=== PATIENT | male | born 1970 ===

== ENCOUNTER 2021-06-03 07:48 | Emergency (ER) | payer MEDICAID ==
[2021-06-03] MEDS ORDERED: CEFEPIME/NS 2 GM/100 ML 2 GM/100 ML BAG IV ONE ×2 (08:01→09:00)
[2021-06-03] MEDS ORDERED: SODIUM CHLORIDE 0.9% 1000 ML 1,000 ML IV ONE ×2 (08:02→12:32)
[2021-06-03] MEDS ORDERED: DEXTROSE 50% IN WATER (25GM) 50 ML VIAL IV ONE ×3 (08:02→13:26)
[2021-06-03] MEDS ORDERED: DEXTROSE 50% IN WATER (25GM) 50 ML SYRINGE IV ONE ×6 (08:03→14:00)
--- NOTE | 2021-06-03 08:13 | Emergency Department Report ---
ED General Adult HPI - General Stated complaint: HIGH BLOOD SUGAR PUI?: Yes Time Seen by Provider: 06/03/21 07:56 Source: patient, old records reviewed Mode of arrival: Stretcher Limitations: No Limitations - History of Present Illness Initial comments: CC: "Will you take my catheter out?" HPI: This is a 51 yo male with hx of CVA Left-side hemiparesis, kidney stone, thoracic aortic aneurysm, hyperlipidemia, HTN, seizure, cataract, indwelling paige catheter who presents with low blood sugar and hypotension. Blood sugar 38 at [facility]. Patient given oral glucose.. SBAR form from [facility] documented BP 101/72. However, patient severely hypotensive upon arrival. Patient has pain near paige catheter. He states that the paige catheter has been present "for a while". He denies cough, shortness of breath, abdominal pain Patient is full code. I reviewed [facility] ICU consultation note provided with [facility] documentation. In June 2020, patient was taken to the operating room for right obstructing ureteral stone. At that time patient was febrile and hypotensive. No documented history of diabetes mellitus. I obtained further history from Raymond Rm, his brother. He is the clinical decision maker. Patient has been a resident of [facility] for 3 years since his major stroke. Patient has not been admitted to the hospital since June 2020 at [facility]. Patient was infected with COVID-19 last year. He received COVID-19 vaccine according to brother's report. -: This morning Consistency: constant Improves with: none Worsens with: none Associated Symptoms: other (Pain at Paige catheter site) - Related Data Allergies Allergy/AdvReac Type Severity Reaction Status Date / Time No Known Allergies Allergy Unverified 06/03/21 08:22 ED Review of Systems ROS: Stated complaint: HIGH BLOOD SUGAR Other details as noted in HPI Comment: All other systems reviewed and negative Constitutional: malaise Respiratory: denies: cough, shortness of breath Cardiovascular: denies: chest pain Gastrointestinal: denies: abdominal pain, nausea, vomiting Musculoskeletal: denies: back pain ED Past Medical Hx - Past Medical History Previous Medical History?: Yes Hx CVA: Yes Hx Seizures: Yes Hx Kidney Stones: Yes - Surgical History Past Surgical History?: Yes Additional Surgical History: Craniotomy, cystoscopy, ureteral stent - Family History Family history: hypertension - Social History Smoking Status: Never Smoker Substance Use Type: None ED Physical Exam - General General appearance: alert, anxious, other (Patient appears ill, hyperventilating, clammy, patient repeatedly reaches toward his groin) - Head Head exam: Present: atraumatic, normocephalic - Eye Eye exam: Present: normal appearance. Absent: scleral icterus, conjunctival injection - ENT ENT exam: Present: mucous membranes dry, other (No oropharyngeal lesions) - Neck Neck exam: Present: normal inspection, full ROM - Respiratory Respiratory exam: Present: respiratory distress, decreased breath sounds, other (Hyperventilation rapid breathing). Absent: accessory muscle use, prolonged expiratory - Cardiovascular Cardiovascular Exam: Present: normal rhythm, tachycardia, normal heart sounds. Absent: systolic murmur, diastolic murmur, rubs, gallop - GI/Abdominal GI/Abdominal exam: Present: soft, normal bowel sounds. Absent: distended, tenderness, guarding, rebound - exam: Present: testicular tenderness, scrotal swelling, other (Purulent discharge at urethra, Paige catheter covered in residue, Erythematous edematous scrotum exquisitely tender to touch, Scrotal skin: Erythematous shiny skin without typical scrotal folds) - Extremities Exam Extremities exam: Present: other (No pedal edema, left hand flexed contracted at the wrist minimal movement of left upper and left lower extremity) - Neurological Exam Neurological exam: Present: alert, altered, other (Oriented to name. Unclear situation. Unclear of date. Patient knows that he is in hospital. He name the hospital "[facility]") - Psychiatric Psychiatric exam: Present: anxious - Skin Skin exam: Present: warm, dry, intact, pallor ED Course Vital Signs 06/03/21 06/03/21 06/03/21 08:15 08:30 08:45 Pulse Rate 117 H 117 H 115 H Respiratory 52 H 27 H 46 H Rate Blood Pressure 65/32 65/32 67/37 O2 Sat by Pulse 56 L 72 L Oximetry 06/03/21 06/03/21 06/03/21 09:00 09:20 09:30 Pulse Rate 117 H 130 H Respiratory 49 H 46 H Rate Blood Pressure 67/37 65/32 82/48 O2 Sat by Pulse 100 81 L Oximetry 06/03/21 06/03/21 06/03/21 09:46 10:00 10:16 Pulse Rate 115 H Respiratory 14 Rate Blood Pressure 82/48 73/30 73/30 O2 Sat by Pulse 97 100 99 Oximetry 06/03/21 06/03/21 06/03/21 11:01 11:16 11:30 Pulse Rate 124 H 123 H 132 H Respiratory 45 H 47 H 34 H Rate Blood Pressure 81/42 83/50 O2 Sat by Pulse 99 98 97 Oximetry 06/03/21 06/03/21 11:54 12:00 Pulse Rate 132 H 124 H Respiratory 31 H 27 H Rate Blood Pressure 92/50 92/50 O2 Sat by Pulse 100 98 Oximetry - Reevaluation(s) Reevaluation #1: 06/03/21 09:24 Patient is tachycardic tachypneic heart rate 130 bpm irregular rhythm seen on monitor. EKG ordered. Blood pressure improved systolic 83/52 after 1.5 L of normal saline. Reevaluation #2: 06/03/21 10:20 Gross hematuria seen in collection bag after Paige catheter was exchanged by nurse. Reevaluation #3: 06/03/21 10:20 Patient has persistent hypotension 72/38. Patient received 30 mils per kilogram of normal saline. CVL will be inserted. Reevaluation #4: 06/03/21 11:20 Patient appears delirious. He repeatedly asked to have wrist restraint moved. He called me "Ms. Vega." Reevaluation #5: 06/03/21 12:13 I spoke with radiologist. He called with critical findings of subcutaneous air at the base of the penis and scrotum. He suspects the cause as traumatic Paige placement - Consultations Consultation #1: 06/03/21 12:40 I spoke with [facility] transfer line specialist in order to expedite transfer to facility with urology and critical care. Consultation #2: 06/03/21 12:43 Repeat blood pressure 123/55 map of 78 Consultation #3: 06/03/21 12:[address] Curiel critical care physician at [facility] staff to the patient in transfer. He requested that I speak with the consulting urologist. 06/03/21 13:00 06/03/21 13:06 I spoke with urologist Dr. Serrano who also accepted the patient in transfer. Patient will be transferred to the ICU at [facility]. - Central Line Placement Right Femoral Consent Obtained: emergent situation Time Out Performed: Yes Patient Placed on Monitor/Pulse Ox: Yes MD Prep: mask, gown, gloves, other (drape cap) Central Line Prep: Povidone-Iodine 1% Local Anesthesia Used: Lidocaine 1% Amount of Anesthesia Used (mls): 5 Ultrasound Used for Placement: Yes Central Line Lumen Inserted: triple Reason for Insertion: Volume Resuscitation Bloods Obtained for Lab: Yes Central Line Position: sutured in place with nyl, other (biopatch) Dressing Applied: Tegaderm Patient Tolerated Procedure: well ED Medical Decision Making - Lab Data Result diagrams: 06/03/21 08:38 06/03/21 08:51 Laboratory Results - last 24 hr 06/03/21 06/03/21 06/03/21 08:01 08:38 08:38 WBC 21.4 H RBC 4.29 Hgb 11.7 L Hct 37.4 MCV 87 MCH 27 L MCHC 31 L RDW 17.1 H Plt Count 75 L Seg Neutrophils % P[employer] PT INR APTT D-Dimer Sodium 141 Potassium 3.5 L Chloride 99.0 Carbon Dioxide 18 L Anion Gap 28 BUN 43 H Creatinine 5.4 H Estimated GFR 11 BUN/Creatinine Ratio 8 Glucose 40 L POC Glucose 36 L Lactic Acid Calcium 9.3 Ferritin Total Bilirubin 0.70 AST 41 H ALT 17 Alkaline Phosphatase 66 Lactate Dehydrogenase C-Reactive Protein Total Protein 6.3 Albumin 3.2 L Albumin/Globulin Ratio 1.0 Urine Color Urine Turbidity Urine pH Ur Specific [place] Urine Protein Urine Glucose (UA) Urine Ketones Urine Blood Urine Nitrite Urine Bilirubin Urine Urobilinogen Ur Leukocyte Esterase Urine WBC (Auto) Urine RBC (Auto) 06/03/21 06/03/21 06/03/21 08:38 08:51 08:51 WBC RBC Hgb Hct MCV MCH MCHC RDW Plt Count Seg Neutrophils % PT INR APTT D-Dimer > 15905 H Sodium Potassium Chloride Carbon Dioxide Anion Gap BUN Creatinine Estimated GFR BUN/Creatinine Ratio Glucose 44 L POC Glucose Lactic Acid 12.00 H* Calcium Ferritin Total Bilirubin AST ALT Alkaline Phosphatase Lactate Dehydrogenase 306 H C-Reactive Protein 22.70 H Total Protein Albumin Albumin/Globulin Ratio Urine Color Urine Turbidity Urine pH Ur Specific [place] Urine Protein Urine Glucose (UA) Urine Ketones Urine Blood Urine Nitrite Urine Bilirubin Urine Urobilinogen Ur Leukocyte Esterase Urine WBC (Auto) Urine RBC (Auto) 06/03/21 06/03/21 06/03/21 08:51 08:51 09:34 WBC RBC Hgb Hct MCV MCH MCHC RDW Plt Count Seg Neutrophils % PT 23.5 H INR 2.05 H APTT 53.6 H D-Dimer Sodium Potassium Chloride Carbon Dioxide Anion Gap BUN Creatinine Estimated GFR BUN/Creatinine Ratio Glucose POC Glucose 26 L Lactic Acid Calcium Ferritin 647.4 H Total Bilirubin AST ALT Alkaline Phosphatase Lactate Dehydrogenase C-Reactive Protein Total Protein Albumin Albumin/Globulin Ratio Urine Color Urine Turbidity Urine pH Ur Specific [place] Urine Protein Urine Glucose (UA) Urine Ketones Urine Blood Urine Nitrite Urine Bilirubin Urine Urobilinogen Ur Leukocyte Esterase Urine WBC (Auto) Urine RBC (Auto) 06/03/21 10:09 WBC RBC Hgb Hct MCV MCH MCHC RDW Plt Count Seg Neutrophils % PT INR APTT D-Dimer Sodium Potassium Chloride Carbon Dioxide Anion Gap BUN Creatinine Estimated GFR BUN/Creatinine Ratio Glucose POC Glucose Lactic Acid Calcium Ferritin Total Bilirubin AST ALT Alkaline Phosphatase Lactate Dehydrogenase C-Reactive Protein Total Protein Albumin Albumin/Globulin Ratio Urine Color Red Urine Turbidity Cloudy Urine pH 8.0 H Ur Specific [place] 1.020 Urine Protein 100 mg/dl Urine Glucose (UA) 50 Urine Ketones Neg Urine Blood Lg Urine Nitrite Neg Urine Bilirubin Neg Urine Urobilinogen < 2.0 Ur Leukocyte Esterase Neg Urine WBC (Auto) > 182.0 H Urine RBC (Auto) > 182.0 - EKG Data EKG shows normal: sinus rhythm, axis Rate: tachycardia - EKG Data Interpretation: nonspecific ST-T wave ash[place] 06/03/21 09:45 Sinus tachycardia rate 125 bpm left axis deviation normal QTC nonspecific T wave pattern no ST elevation - Radiology Data Radiology results: report reviewed [facility] [address] [place] [address] XRay Report Signed Patient: OVI RM MR#: [id number] : 1970 Acct:[id number] Age/Sex: 51 / M ADM Date: 06/03/21 Loc: ED Attending Dr: Ordering Physician: Sidra Reddy MD Date of Service: 06/03/21 Procedure(s): XR chest 1V ap Accession Number(s): [id number] cc: Sidra Reddy MD Fluoro Time In Minutes: CHEST 1 VIEW 06/03/2021 8:33 AM INDICATION / CLINICAL INFORMATION: sepsis hypotension. COMPARISON: None available. FINDINGS: SUPPORT DEVICES: None. HEART / MEDIASTINUM: No significant abnormality. LUNGS / PLEURA: No significant pulmonary or pleural abnormality. No pneumothorax. ADDITIONAL FINDINGS: No significant additional findings. IMPRESSION: 1. No acute findings. Signer Name: Oswaldo Raza MD Signed: 06/03/2021 8:39 AM Workstation Name: [id number] Transcribed By: PERRI Dictated By: Oswaldo Raza MD Electronically Authenticated By: Oswaldo Raza MD Signed Date/Time: 06/03/21838 DD/ 8 TD/TT: Patient Name: OVI RM Gender: Male Date of : 1970 Referring Provider: SIDRA RUIZ Organization: [facility] Accession Number: [id number] Requested Date: June 03, 2021 11:02 Report Status: Final Requested Procedure: 1 Procedure Description: CT abdomen pelvis wo con Modality: CT Findings Reporting MD: Oswaldo Raza Dictation Time: June 03, 2021 11:09 Molder Foam Rubber: Not available Demolition Specialist Date: CT CHEST, ABDOMEN AND PELVIS WITHOUT CONTRAST HISTORY: Hematuria, septic shock COMPARISON: None TECHNIQUE: Routine chest, abdominal and pelvic CT exam performed without contrast. Lack of intravenous contrast limits evaluation of the vascular and solid organs.. All CT scans at this location are performed using CT dose reduction for ALARA by means of automated exposure control. FINDINGS: CT CHEST: Lungs: Mild bibasilar subsegmental atelectasis. Trachea and Bronchi: No significant abnormality. Heart and Pericardium: Mild global cardiomegaly. Mild coronary artery atherosclerotic calcification. Vasculature: No significant abnormality. Lymphatics: No lymphadenopathy. CT ABDOMEN: Liver: No significant abnormality. Biliary: No significant abnormality. Spleen: No significant abnormality. Unenlarged. Pancreas: No significant abnormality. Adrenals: No significant abnormality. Kidneys: There are some small nonobstructing right intrarenal stones measuring up to 5 mm. There is no hydronephrosis. Lymphatics: No lymphadenopathy. Vasculature: No significant abnormality. Bowel/Peritoneum: There is moderate small bowel distention with transition to nondistended bowel in the lower mid abdomen. There is an umbilical hernia containing a loop of small bowel but this is not the site of obstruction. There is no free air or pneumatosis. The colon appears decompressed. CT PELVIC: : There is a Paige catheter in the bladder. There is some subcutaneous air in the visualized portion of the base of the penis and scrotum. Lymphatics: No significant abnormality. Osseous Structures: No aggressive appearing osseous lesions. Additional Findings: Right femoral venous catheter noted. IMPRESSION: [facility] [address] [place] [address] P [phone] F [phone] [facility] - Report exported on Jun 03, 2021 11:39:84 [id number] - Page 2 of 2 1. Subcutaneous air in the base of the penis and visualized portion of the scrotum. This could be due to traumatic Paige catheter placement or Dinorah gangrene. 2. Mild small bowel obstruction with transition in the lower midabdomen. 3. Nonobstructing right intrarenal stones. 4. No acute findings in the chest. Signer Name: Oswaldo Raza MD Signed: 06/03/2021 11:09 AM Workstation Name: [id number] - Medical Decision Making 1. Septic shock: IV cefepime, 30 mL/kg NS bolus given immediately upon arrival. with persistent hypotension requiring CVL insertion and norepinephrine. Severe lactic acidosis 12, vancomycin added for additional broad-spectrum coverage, source presumed upon arrival CT abdomen pelvis: Reveals subcutaneous air in the scrotal wall and base of penis, on examination patient has erythematous, edematous, exquisitely tender scrotum 2. Persistent hypoglycemia, sepsis induced 3. Acute kidney injury, vasomotor nephropathy due to organ hypoperfusion/septic shock 4. Acute metabolic encephalopathy multifactorial delirium due to sepsis, persistent hypoglycemia 5. Sepsis-induced coagulopathy: patient is not on anticoagulation 6. Tachypnea with elevated D-dimer: I suspect tachypnea due to severe metabolic derangement. However bilateral lower extremity duplex ultrasound obtained to rule out VTE. No DVT detected. Elevated D-dimer reflective of sepsis induced coagulopathy and organ dysfunction 7. Small bowel obstruction: Patient does not have extended abdomen. He did not have any vomiting or reported abdominal pain. I do not suspect CT findings to be clinically significant Critical Care Time: Yes Critical care time in (mins) excluding proc time.: 150 Critical care attestation.: If time is entered above; I have spent that time in minutes in the direct care of this critically ill patient, excluding procedure time. 150 minutes of critical care time excluding procedures were used in the care of the patient. I came immediately to the bedside upon patient's arrival. I discussed treatment plan with the nursing team members. I reviewed electronic record. I was concerned for septic shock and imminent airway compromise. I reviewed SNF documentation. Patient required multiple interventions and reassessments. ED Disposition Clinical Impression: Dinorah gangrene, Septic shock, Partial small bowel obstruction, Acute hemorrhagic cystitis, Acute metabolic encephalopathy, Sepsis with multi-organ dysfunction Disposition: DC/TX-70 ANOTHER TYPE HLTHCARE Is pt being admited?: No Does the pt Need Aspirin: No Condition: Critical
--- NOTE | 2021-06-03 08:44 | XRay Report ---
CHEST 1 VIEW 06/03/2021 8:33 AM INDICATION / CLINICAL INFORMATION: sepsis hypotension. COMPARISON: None available. FINDINGS: SUPPORT DEVICES: None. HEART / MEDIASTINUM: No significant abnormality. LUNGS / PLEURA: No significant pulmonary or pleural abnormality. No pneumothorax. ADDITIONAL FINDINGS: No significant additional findings. IMPRESSION: 1. No acute findings. Signer Name: Oswaldo Raza MD Signed: 06/03/2021 8:39 AM Workstation Name: [id number]
[2021-06-03] MEDS ORDERED: SODIUM CHLORIDE 0.9% 1000 ML IV SOLN IV ONE (08:46)
[2021-06-03] MEDS ORDERED: ACETAMINOPHEN 650 MG RECT SUPP PR ONE ×2 (09:03)
[2021-06-03 09:24] LABS: C-Reactive Protein 22.7 mg/dL (0.00-1.30)
[2021-06-03 09:25] LABS: Albumin 3.2 g/dL (3.9-5); Calcium 9.3 mg/dL (8.4-10.2)
[2021-06-03 09:30] LABS: Hematocrit 37.4 % (35.5-45.6); Hemoglobin 11.7 gm/dl (11.8-15.2); Mean Corpuscular HGB Conc 31 % (32-34); Mean Corpuscular Volume 87 fl (84-94); Red Blood Count 4.29 M/mm3 (3.65-5.03); Red Cell Distribution Width 17.1 % (13.2-15.2)
[2021-06-03] MEDS: DEXTROSE 50% IN WATER (25GM) 50 ML SYRINGE IV ONE ×4 (09:48→12:14)
[2021-06-03 09:49] LABS: Platelet Count 75 K/mm3 (140-440)
[2021-06-03 10:48] LABS: INR 2.05 (0.87-1.13); Partial Thromboplastin Time 53.6 Sec. (24.2-36.6)
[2021-06-03] MEDS: NORepinephrine/NS 4 MG-250 ML 4 MG/250 ML BAG IV SCH ×3 (11:03→16:39)
[2021-06-03 11:05] LABS: Bilirubin,Urine NEG (Negative); Blood,Urine LG (Negative); Color,Urine Red (Yellow); Urobilinogen,Urine < 2.0 mg/dL (<2.0)
[2021-06-03 11:17] LABS: RBC,Urine > 182.0 /HPF (0.0-6.0)
[2021-06-03 11:18] LABS: WBC,Urine > 182.0 /HPF (0.0-6.0)
[2021-06-03] MEDS ORDERED: VANCOMYCIN 2,000 MG in SODIUM CHLORIDE 0.9% 500 ML 500 ML IV ONE (12:00)
[2021-06-03] MEDS ORDERED: VANCOMYCIN PHARMACY TO DOSE IV SCH (12:00)
[2021-06-03] MEDS ORDERED: DEXTROSE 10% IN WATER 1,000 ML IV SCH (12:00)
[2021-06-03 12:01] LABS: Total Cells Counted 100
[2021-06-03 12:02] LABS: Platelet Estimate Consistent w Auto; RBC Morphology Normal
--- NOTE | 2021-06-03 12:13 | Cat Scan Report ---
CT CHEST, ABDOMEN AND PELVIS WITHOUT CONTRAST HISTORY: Hematuria, septic shock COMPARISON: None TECHNIQUE: Routine chest, abdominal and pelvic CT exam performed without contrast. Lack of intraveno us contrast limits evaluation of the vascular and solid organs.. All CT scans at this location are pe rformed using CT dose reduction for ALARA by means of automated exposure control. FINDINGS: CT CHEST: Lungs: Mild bibasilar subsegmental atelectasis. Trachea and Bronchi: No significant abnormality. Heart and Pericardium: Mild global cardiomegaly. Mild coronary artery atherosclerotic calcification. Vasculature: No significant abnormality. Lymphatics: No lymphadenopathy. CT ABDOMEN: Liver: No significant abnormality. Biliary: No significant abnormality. Spleen: No significant abnormality. Unenlarged. Pancreas: No significant abnormality. Adrenals: No significant abnormality. Kidneys: There are some small nonobstructing right intrarenal stones measuring up to 5 mm. There is n o hydronephrosis. Lymphatics: No lymphadenopathy. Vasculature: No significant abnormality. Bowel/Peritoneum: There is moderate small bowel distention with transition to nondistended bowel in t he lower mid abdomen. There is an umbilical hernia containing a loop of small bowel but this is not t he site of obstruction. There is no free air or pneumatosis. The colon appears decompressed. CT PELVIC: : There is a Juarez catheter in the bladder. There is some subcutaneous air in the visualized portio n of the base of the penis and scrotum. Lymphatics: No significant abnormality. Osseous Structures: No aggressive appearing osseous lesions. Additional Findings: Right femoral venous catheter noted. IMPRESSION: 1. Subcutaneous air in the base of the penis and visualized portion of the scrotum. This could be due to traumatic Juarez catheter placement or Dinorah gangrene. 2. Mild small bowel obstruction with transition in the lower midabdomen. 3. Nonobstructing right intrarenal stones. 4. No acute findings in the chest. Signer Name: Oswaldo Raza MD Signed: 06/03/2021 12:09 PM Workstation Name: [id number]
--- NOTE | 2021-06-03 13:07 | Vascular Lab Report ---
DUPLEX DOPPLER LOWER EXTREMITY VEINS, BILATERAL INDICATION / CLINICAL INFORMATION: immobile patient elevated d-dimer. Lower extremity pain and swelling. TECHNIQUE: Duplex doppler imaging was performed through the veins of both lower extremities using venous jackie bonny and other maneuvers. COMPARISON: None available. FINDINGS: Right Common Femoral vein: Negative. Right Femoral vein: Negative. Right Popliteal vein: Negative. Right Calf veins: Negative. Left Common Femoral vein: Negative. Left Femoral vein: Negative. Left Popliteal vein: Negative. Left Calf veins: Negative. Additional findings: None. IMPRESSION: 1. No sonographic evidence for DVT in either lower extremity. Signer Name: Osman Mccurdy MD Signed: 06/03/2021 1:02 PM Workstation Name: [id number]
[2021-06-03] MEDS ORDERED: HYDROCORTISONE SOD SUCC 100 MG/2 ML VIAL IV ONE (13:26)
--- NOTE | 2021-06-03 14:28 | Cat Scan Report ---
CT pelvis wo con INDICATION / CLINICAL INFORMATION: Worsening scrotal and penile pain. TECHNIQUE: Routine CT pelvis without contrast All CT scans at this location are performed using CT dose reductio n for ALARA by means of automated exposure control. COMPARISON: Immediately prior exam performed earlier today FINDINGS: Pelvis: The Juarez catheter is unchanged in position from the immediately prior exam. The urinary blad debra remains collapsed. Within the mid left penile urethra there is again mixed fluid and gas seen within the surrounding pen ile soft tissues this is similar to the prior exam. No definite gas is identified within the scrotum or the upper peritoneal luna. Review of the more superior pelvis demonstrates multiple dilated loops of small bowel with partial raine wel herniation to the periumbilical hernia, unchanged from the prior exam. IMPRESSION: Ultimately no significant change from the immediately prior exam on 06/03/2021. Subcutaneous fluid and mixed gas is at the level of the mid penile urethra and the surrounding extraurethral penile soft ti ssues. Diagnostic considerations remain penile trauma versus underlying infection, as outlined previo usly. Signer Name: Osman Mccurdy MD Signed: 06/03/2021 2:24 PM Workstation Name: [id number]
[2021-06-03 15:57] VITALS: BP 98/62
--- NOTE | 2021-06-05 09:14 | Electrocardiograph Report ---
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
== END 2021-06-03 16:53 | disposition other institution (70) ==
LOC: ED 07:48
DX: A41.9 Sepsis, unspecified organism (principal); N49.3 Fournier gangrene; K56.600 Partial intestinal obstruction, unspecified as to cause; N30.01 Acute cystitis with hematuria; G93.41 Metabolic encephalopathy; I10 Essential (primary) hypertension; E78.5 Hyperlipidemia, unspecified; Z20.822 Contact with and (suspected) exposure to COVID-19; Z86.73 Personal history of transient ischemic attack (TIA), and cerebral infarction without residual deficits; Z98.890 Other specified postprocedural states
CPT/HCPCS: 36415; 36556; 71045; 71250; 72192; 74176; 80053; 81001; 82140; 82728; 82947; 82962; 83615; 84145; 85007; 85025; 85379; 85610; 85730; 86140; 87040; 87076; 87086; 87186; 93005; 93970; 96361; 96365; 96366; 96368; 96375; 96376; 99291; 99292; J0692; J1720; J3370; J7030; J7040; U0003

== ENCOUNTER 2022-01-15 19:45 | Inpatient (IN) | payer MEDICAID ==
--- NOTE | 2022-01-15 20:46 | Emergency Department Report ---
HPI - General Chief Complaint: Urogenital-Male Time Seen by Provider: 01/15/22 20:23 - HPI HPI: 51-year-old male, with a history of CVA, seizures, craniotomy and suprapubic Paige catheter, presents to the emergency department with a 1 to 2-day history of a clogged Paige catheter. It is causing some lower abdominal/suprapubic discomfort. Patient presents to the ED via EMS from home. He denies any fever, shortness of breath. ED Past Medical Hx - Past Medical History Previous Medical History?: Yes Hx CVA: Yes Hx Seizures: Yes Hx Kidney Stones: Yes - Surgical History Past Surgical History?: Yes Additional Surgical History: Craniotomy, cystoscopy, ureteral stent - Social History Smoking Status: Never Smoker Substance Use Type: None ED Review of Systems ROS: Stated complaint: CLOGGED CATHER Other details as noted in HPI Comment: All other systems reviewed and negative Respiratory: denies: shortness of breath Cardiovascular: denies: chest pain, edema Gastrointestinal: abdominal pain Genitourinary: other (clogged paige catheter). denies: hematuria Physical Exam - Physical Exam Vital Signs: Vital Signs 01/15/22 20:05 Temperature 98.2 F Pulse Rate 120 H Respiratory 18 Rate Blood Pressure 144/95 [Right] O2 Sat by Pulse 96 Oximetry Physical Exam: GENERAL: The patient is well-developed well-nourished. HENT: Normocephalic. Atraumatic. Patient has moist mucous membranes. EYES: Extraocular motions are intact. NECK: Supple. Trachea is midline. CHEST/LUNGS: Clear to auscultation. There is no respiratory distress noted. HEART/CARDIOVASCULAR: Regular. There is no tachycardia. There is no murmur. ABDOMEN: Abdomen is soft, nontender. Patient has normal bowel sounds. Suprapubic Paige catheter in place. SKIN: Skin is warm and dry. NEURO: The patient is awake, alert, and cooperative. Left-sided hemiparesis with left upper extremity contracture. MUSCULOSKELETAL: There is no tenderness or deformity. 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 However, I was notified that they have no beds available and can not accept any transfers at this time. I spoke to a urologist, Dr. Avendaño. I explained the situation including my inability to remove and replace the suprapubic Paige catheter, and inability to place a normal urethral Paige catheter. Despite not being relocation services specialist, Dr Avendaño has graciously agreed to consult on the patient. He will be admitted to the medicine service and Dr Avendaño is to be notified/called sometime after 8 AM. ED Medical Decision Making - Lab Data Result diagrams: 01/15/22 21:00 01/15/22 21:00 Lab Results 01/15/22 01/15/22 Range/Units 21:00 21:00 WBC 6.9 (4.5-11.0) K/mm3 RBC 4.99 (3.65-5.03) M/mm3 Hgb 12.8 (11.8-15.2) gm/dl Hct 40.6 (35.5-45.6) % MCV 81 L (84-94) fl MCH 26 L (28-32) pg MCHC 32 (32-34) % RDW 16.7 H (13.2-15.2) % Plt Count 148 (140-440) K/mm3 Lymph % (Auto) 11.2 L (13.4-35.0) % [place] % (Auto) 10.6 H (0.0-7.3) % Eos % (Auto) 1.1 (0.0-4.3) % Baso % (Auto) 0.3 (0.0-1.8) % Lymph # (Auto) 0.8 L (1.2-5.4) K/mm3 [place] # (Auto) 0.7 (0.0-0.8) K/mm3 Eos # (Auto) 0.1 (0.0-0.4) K/mm3 Baso # (Auto) 0.0 (0.0-0.1) K/mm3 Seg Neutrophils % 76.8 H (40.0-70.0) % Seg Neutrophils # 5.3 (1.8-7.7) K/mm3 Sodium 142 (137-145) mmol/L Potassium 3.7 (3.6-5.0) mmol/L Chloride 107.1 H (98-107) mmol/L Carbon Dioxide 24 (22-30) mmol/L Anion Gap 15 mmol/L BUN 19 (9-20) mg/dL Creatinine 0.8 (0.8-1.3) mg/dL Estimated GFR > 60 ml/min BUN/Creatinine Ratio 24 % Glucose 105 H (75-100) mg/dL Calcium 8.5 (8.4-10.2) mg/dL - Medical Decision Making This patient presents to the emergency department with complaint of a 1 day history of a clogged suprapubic Paige catheter. The catheter itself does appear to have some thick caseous material seen in the tubing and there is not much drainage into the collection bag. I made an attempt to switch out the suprapubic Paige catheter. However I was unable to deflate the bulb. Instead of saline being drawn out, it was obviously urine. I took a bedside ultrasound and was able to see the balloon inside of the bladder. However, even after cutting the tubing near the port for the bulb, the bulb itself did not deflate. Patient had a lot of discomfort with even gentle pulling at the Paige catheter tubing. There is concerned that it could be stuck to or adhered to something within the bladder. Patient's labs have been unremarkable thus far including CBC and metabolic panel. Specifically there are no leukocytosis or renal insufficiency. Patient thought that he had a urologist through the [facility] system, but it does appear that he was transferred there about 9 months ago when he appeared to have some septic urological condition, possibly Dinorah's. However, [facility] does not have any beds available and therefore would not accept a transfer of this patient. I was able to speak [facility], and despite not being relocation services specialist for the emergency department is graciously agreed to consult on the patient after the patient has been admitted to the internal medicine service. The patient was accepted for admission by the hospitalist, Dr. Lucas. Critical Care Time: No Critical care attestation.: If time is entered above; I have spent that time in minutes in the direct care of this critically ill patient, excluding procedure time. ED Disposition Clinical Impression: Suprapubic catheter dysfunction, Urinary retention Disposition: ADMITTED INPATIENT Is pt being admited?: Yes Condition: Stable Time of Disposition: 23:50
[2022-01-15 21:12] LABS: Basophils % (Auto) 0.3 % (0.0-1.8); Eosinophils # (Auto) 0.1 K/mm3 (0.0-0.4); Eosinophils % (Auto) 1.1 % (0.0-4.3); Hematocrit 40.6 % (35.5-45.6); Hemoglobin 12.8 gm/dl (11.8-15.2); Lymphocytes # (Auto) 0.8 K/mm3 (1.2-5.4); Lymphocytes % (Auto) 11.2 % (13.4-35.0); Mean Corpuscular HGB Conc 32 % (32-34); Mean Corpuscular Volume 81 fl (84-94); Monocytes # (Auto) 0.7 K/mm3 (0.0-0.8); Monocytes % (Auto) 10.6 % (0.0-7.3); Platelet Count 148 K/mm3 (140-440); Red Blood Count 4.99 M/mm3 (3.65-5.03); Red Cell Distribution Width 16.7 % (13.2-15.2)
[2022-01-15 21:33] LABS: BUN/Creatinine Ratio 24; Blood Urea Nitrogen 19 mg/dL (9-20); Calcium 8.5 mg/dL (8.4-10.2); Hemolysis Index 5
[2022-01-16] MEDS ORDERED: MAGNESIUM HYDROXIDE (MOM) ORAL LIQD UDC PO PRN (00:33)
[2022-01-16] MEDS ORDERED: MORPHINE 2 MG/1 ML INJ IV PRN (00:33)
[2022-01-16] MEDS ORDERED: MORPHINE 4 MG/1 ML INJ IV PRN (00:33)
[2022-01-16] MEDS ORDERED: ONDANSETRON 4 MG/2 ML INJ IV PRN (00:33)
--- NOTE | 2022-01-16 00:41 | History and Physical Report ---
History of Present Illness Date of examination: 01/16/22 Date of admission: 01/16/2022 Chief complaint: Malfunctioning Suprapubic Catheter History of present illness: 51-year-old male with known history of CVA, seizures, craniotomy and suprapubic Juarez catheter brought into the emergency room today with a 1 to 2-day history of malfunctioning Juarez catheter. Patient states he has been having lower abdominal discomfort over the past 2 days. He denies any fever or chills, no chest pain or shortness of breath, no nausea or vomiting and no diarrhea. Attempts were made by the ER physician to change the suprapubic catheter which failed. Urologist Dr. Avendaño wound care for consulted and has agreed to follow-up with patient in the a.m. Work-up so far has been unremarkable. Past History Past Medical History: seizures, stroke, other (Kidney stones) Past Surgical History: Other (Craniotomy,Cystoscopy,Ureteral Stent) Social history: no significant social history Family history: no significant family history Medications and Allergies Allergies Allergy/AdvReac Type Severity Reaction Status Date / Time No Known Allergies Allergy Verified 01/15/22 20:13 Active Meds: Active Medications Acetaminophen (Acetaminophen 325 Mg Tab) 650 mg PO Q4H PRN PRN Reason: Pain MILD(1-3)/Fever >100.5/JOHN Ondansetron HCl (Ondansetron 4 Mg/2 Ml Inj) 4 mg IV Q8H PRN PRN Reason: Nausea And Vomiting Review of Systems Constitutional: no fever, no chills Ears, nose, mouth and throat: no nasal congestion, no sore throat Cardiovascular: no chest pain, no palpitations Respiratory: no cough, no shortness of breath Gastrointestinal: no abdominal pain, no nausea, no vomiting, no diarrhea Genitourinary Male: urinary retention, no dysuria, no hematuria, no flank pain Musculoskeletal: no neck pain, no low back pain Integumentary: no rash, no pruritis Neurological: no headaches, no confusion Psychiatric: no anxiety, no depression Endocrine: no polyphagia, no polydipsia, no polyuria Exam - Constitutional Vitals: Temp Pulse Resp BP Pulse Ox 98.2 F 106 H 16 143/88 97 01/15/22 20:05 01/15/22 22:00 01/15/22 22:00 01/15/22 22:00 01/15/22 20:30 General appearance: Present: no acute distress, well-nourished - EENT Eyes: Present: PERRL, EOM intact. Absent: scleral icterus ENT: hearing intact, clear oral mucosa, dentition normal - Neck Neck: Present: supple, normal ROM - Respiratory Respiratory effort: normal Respiratory: bilateral: CTA - Cardiovascular Rhythm: regular Heart Sounds: Present: S1 & S2. Absent: gallop, systolic murmur, diastolic murmur, rub, click - Extremities Extremities: no ischemia, pulses intact, pulses symmetrical, No edema, normal temperature, normal color, Full ROM Peripheral Pulses: within normal limits - Abdominal General gastrointestinal: Present: soft, non-tender, non-distended, normal bowel sounds, other (Suprapubic Catheter). Absent: mass - Integumentary Integumentary: Present: clear, warm, dry, normal turgor. Absent: rash - Musculoskeletal Musculoskeletal: other (Paraplegic) - Psychiatric Psychiatric: appropriate mood/affect, intact judgment & insight, memory intact, cooperative - Neurologic Neurologic: CNII-XII intact, focal deficits (Paraplegic) Results - Labs CBC & Chem 7: 01/15/22 21:00 01/15/22 21:00 Labs: Abnormal lab results 01/15/22 01/15/22 Range/Units 21:00 21:00 MCV 81 L (84-94) fl MCH 26 L (28-32) pg RDW 16.7 H (13.2-15.2) % Lymph % (Auto) 11.2 L (13.4-35.0) % [place] % (Auto) 10.6 H (0.0-7.3) % Lymph # (Auto) 0.8 L (1.2-5.4) K/mm3 Seg Neutrophils % 76.8 H (40.0-70.0) % Chloride 107.1 H (98-107) mmol/L Glucose 105 H (75-100) mg/dL Assessment and Plan - Patient Problems (1) Suprapubic catheter dysfunction Current Visit: Yes Status: Acute Plan to address problem: Failed attempts were made to remove malfunctioning catheter. Urologist has been consulted for evaluation. (2) Urinary retention Current Visit: Yes Status: Acute Plan to address problem: Possibly secondary to the malfunctioning catheter. Will await urology evaluation. (3) DVT prophylaxis Current Visit: Yes Status: Acute Plan to address problem: Patient placed on sequential compression device. (4) Full code status Current Visit: Yes Status: Acute Plan to address problem: Patient is full code.
[2022-01-16] MEDS: ACETAMINOPHEN 325 MG TAB PO PRN ×2 (07:55→20:39)
--- NOTE | 2022-01-16 09:20 | Cat Scan Report ---
. CT ABDOMEN AND PELVIS WITHOUT CONTRAST HISTORY: malfunctioning suprapubic catheter. COMPARISON: CT pelvis from 06/03/2021 TECHNIQUE: CT images of the abdomen and pelvis were obtained without administration of intravenous co ntrast. All CT scans at this location are performed using CT dose reduction for ALARA by means of au tomated exposure control. FINDINGS: Lungs/bones: There is minimal basilar atelectasis. Degenerative changes are present in the spine and pelvis with no acute osseous abnormality identified. Abdomen/pelvis: The liver, gallbladder, spleen, pancreas, adrenals, left kidney, and proximal GI tra ct appear unremarkable. There is nonobstructive nephrolithiasis in the right kidney with largest ston e in the mid to lower pole measuring 6 mm in maximal dimension on image 69 of series 2. IVC filter is positioned below the level the renal veins. There is a small umbilical hernia containing fat and a loop of small bowel without incarceration or o bstruction. The hernia neck is wide. Suprapubic catheter is well positioned in the urinary bladder. The bladder is not distended. There is mild circumferential wall thickening and layering stone/debris in the bladder. No pelvic free fluid identified. No acute colonic abnormality. The appendix is normal. IMPRESSION: 1. Well-positioned suprapubic bladder catheter. 2. Circumferential bladder wall thickening with internal layering debris/stones. 3. Nonobstructive nephrolithiasis in the right kidney. Signer Name: Jack Prescott MD Signed: 01/16/2022 9:16 AM Workstation Name: [id number]
--- NOTE | 2022-01-16 09:38 | Progress Note ---
Assessment and Plan Assessment and plan: 51-year-old male with known history of CVA, seizures, craniotomy and suprapubic catheter brought into the emergency room today with a 1 to 2-day history of malfunctioning catheter. Patient stated he had been having lower abdominal discomfort over the past 2 days. Malfunctioning suprapubic catheter History CVA History of seizure disorder History of craniotomy 01/16/2022. Urology has been consulted and will evaluate the patient this morning. Check CT abdomen pelvis for further evaluation History Interval history: No new issues overnight Hospitalist Physical - Constitutional Vitals: Temp Pulse Resp BP Pulse Ox 98.3 F 77 18 135/72 97 01/16/22 04:20 01/16/22 04:20 01/16/22 04:20 01/16/22 04:20 01/16/22 04:20 General appearance: Present: no acute distress, well-nourished - EENT Eyes: Present: PERRL, EOM intact ENT: hearing intact, clear oral mucosa, dentition normal - Neck Neck: Present: supple, normal ROM - Respiratory Respiratory effort: normal Respiratory: bilateral: CTA - Cardiovascular Rhythm: regular Heart Sounds: Present: S1 & S2. Absent: gallop, rub - Extremities Extremities: no ischemia, No edema, Full ROM - Abdominal General gastrointestinal: soft, non-tender, non-distended, normal bowel sounds - Integumentary Integumentary: Present: clear, warm, dry - Neurologic Neurologic: CNII-XII intact, moves all extremities Results - Labs CBC & Chem 7: 01/15/22 21:00 01/15/22 21:00 Labs: Laboratory Last Values WBC 6.9 K/mm3 (4.5-11.0) 01/15/22 21:00 RBC 4.99 M/mm3 (3.65-5.03) 01/15/22 21:00 Hgb 12.8 gm/dl (11.8-15.2) 01/15/22 21:00 Hct 40.6 % (35.5-45.6) 01/15/22 21:00 MCV 81 fl (84-94) L 01/15/22 21:00 MCH 26 pg (28-32) L 01/15/22 21:00 MCHC 32 % (32-34) 01/15/22 21:00 RDW 16.7 % (13.2-15.2) H 01/15/22 21:00 Plt Count 148 K/mm3 (140-440) 01/15/22 21:00 Lymph % (Auto) 11.2 % (13.4-35.0) L 01/15/22 21:00 [place] % (Auto) 10.6 % (0.0-7.3) H 01/15/22 21:00 Eos % (Auto) 1.1 % (0.0-4.3) 01/15/22 21:00 Baso % (Auto) 0.3 % (0.0-1.8) 01/15/22 21:00 Lymph # (Auto) 0.8 K/mm3 (1.2-5.4) L 01/15/22 21:00 [place] # (Auto) 0.7 K/mm3 (0.0-0.8) 01/15/22 21:00 Eos # (Auto) 0.1 K/mm3 (0.0-0.4) 01/15/22 21:00 Baso # (Auto) 0.0 K/mm3 (0.0-0.1) 01/15/22 21:00 Seg Neutrophils % 76.8 % (40.0-70.0) H 01/15/22 21:00 Seg Neutrophils # 5.3 K/mm3 (1.8-7.7) 01/15/22 21:00 Sodium 142 mmol/L (137-145) 01/15/22 21:00 Potassium 3.7 mmol/L (3.6-5.0) 01/15/22 21:00 Chloride 107.1 mmol/L (98-107) H 01/15/22 21:00 Carbon Dioxide 24 mmol/L (22-30) 01/15/22 21:00 Anion Gap 15 mmol/L 01/15/22 21:00 BUN 19 mg/dL (9-20) 01/15/22 21:00 Creatinine 0.8 mg/dL (0.8-1.3) 01/15/22 21:00 Estimated GFR > 60 ml/min 01/15/22 21:00 BUN/Creatinine Ratio 24 % 01/15/22 21:00 Glucose 105 mg/dL (75-100) H 01/15/22 21:00 Calcium 8.5 mg/dL (8.4-10.2) 01/15/22 21:00 Active Medications - Current Medications Current Medications: Generic Name Dose Route Start Last Admin Trade Name Freq PRN Reason Stop Dose Admin Acetaminophen 650 mg 01/16/22 00:33 01/16/22 07:55 Acetaminophen 325 Mg Tab PO 650 mg Q4H PRN Administration Pain MILD(1-3)/Fever >100.5/JOHN Magnesium Hydroxide 30 ml 01/16/22 00:33 Magnesium Hydroxide (Mom) Oral Liqd Udc PO Q4H PRN Constipation Morphine Sulfate 2 mg 01/16/22 00:33 Morphine 2 Mg/1 Ml Inj IV Q4H PRN Pain, Moderate (4-6) Morphine Sulfate 4 mg 01/16/22 00:33 Morphine 4 Mg/1 Ml Inj IV Q4H PRN Pain , Severe (7-10) Ondansetron HCl 4 mg 01/16/22 00:33 Ondansetron 4 Mg/2 Ml Inj IV Q8H PRN Nausea And Vomiting Sodium Chloride 10 ml 01/16/22 10:00 Sodium Chloride 0.9% 10 Ml Flush Syringe IV BID TORSTEN Sodium Chloride 10 ml 01/16/22 00:33 Sodium Chloride 0.9% 10 Ml Flush Syringe IV PRN PRN LINE FLUSH
--- NOTE | 2022-01-16 14:03 | Progress Note ---
Assessment and Plan calcified spt ct seen blader and r renal stones not compliant rec OR tube pklaced at [place] not npo Subjective Date of service: 01/16/22 Principal diagnosis: retention obst spt Objective - Constitutional Vitals: Vital Signs - 12hr 01/16/22 01/16/22 01/16/22 02:46 04:20 10:15 Temperature 97.7 F 98.3 F 99.3 F Pulse Rate 90 77 89 Respiratory 18 18 22 Rate Blood Pressure 151/84 135/72 136/85 O2 Sat by Pulse 97 97 99 Oximetry General appearance: Present: no acute distress - Neck Neck: supple - Respiratory Respiratory effort: normal Extremities: no ischemia - Gastrointestinal General gastrointestinal: Present: soft (10 F spt ) - Genitourinary Male genitourinary: normal - Labs CBC & Chem 7: 01/15/22 21:00 01/15/22 21:00 Labs: Abnormal lab results 01/15/22 01/15/22 Range/Units 21:00 21:00 MCV 81 L (84-94) fl MCH 26 L (28-32) pg RDW 16.7 H (13.2-15.2) % Lymph % (Auto) 11.2 L (13.4-35.0) % [place] % (Auto) 10.6 H (0.0-7.3) % Lymph # (Auto) 0.8 L (1.2-5.4) K/mm3 Seg Neutrophils % 76.8 H (40.0-70.0) % Chloride 107.1 H (98-107) mmol/L Glucose 105 H (75-100) mg/dL Medications & Allergies - Medications Allergies/Adverse Reactions: Allergies No Known Allergies Allergy (Verified 01/15/22 20:13) Active Medications: Generic Name Dose Route Start Last Admin Trade Name Freq PRN Reason Stop Dose Admin Acetaminophen 650 mg 01/16/22 00:33 01/16/22 07:55 Acetaminophen 325 Mg Tab PO 650 mg Q4H PRN Administration Pain MILD(1-3)/Fever >100.5/JOHN Magnesium Hydroxide 30 ml 01/16/22 00:33 Magnesium Hydroxide (Mom) Oral Liqd Udc PO Q4H PRN Constipation Morphine Sulfate 2 mg 01/16/22 00:33 Morphine 2 Mg/1 Ml Inj IV Q4H PRN Pain, Moderate (4-6) Morphine Sulfate 4 mg 01/16/22 00:33 Morphine 4 Mg/1 Ml Inj IV Q4H PRN Pain , Severe (7-10) Ondansetron HCl 4 mg 01/16/22 00:33 Ondansetron 4 Mg/2 Ml Inj IV Q8H PRN Nausea And Vomiting Sodium Chloride 10 ml 01/16/22 10:00 01/16/22 10:07 Sodium Chloride 0.9% 10 Ml Flush Syringe IV 10 ml BID TORSTEN Administration Sodium Chloride 10 ml 01/16/22 00:33 Sodium Chloride 0.9% 10 Ml Flush Syringe IV PRN PRN LINE FLUSH
--- NOTE | 2022-01-16 19:00 | Consultation ---
DATE OF CONSULTATION: 01/16/2022 The patient is in room 380. HISTORY OF PRESENT ILLNESS: The patient is a 51-year-old gentleman who was admitted to the hospital through the Emergency Room. They had a suprapubic placed at [place], which is totally calcified and could not be removed. He has significant pain. He has had previous strokes and kidney stones in the past and previous craniotomy. PAST MEDICAL HISTORY: As mentioned above, history of stones and he has a suprapubic tube. I suspect he has stricture. I do not have any records from [place]. SOCIAL HISTORY: ?Alcohol. FAMILY HISTORY: Noncontributory. ALLERGIES: Negative. MEDICATIONS: Tylenol. REVIEW OF SYSTEMS: He has not voided for a while and he is not a very good historian. PHYSICAL EXAMINATION: GENERAL: On exam, he is awake. He is in no distress, but he is a little uncomfortable. The balloon part of the suprapubic tube was cut and there was some urine coming out, but otherwise not much urine is dripping on the bed. It is totally calcified. ABDOMEN: Soft. GENITALIA: Atrophic testis. IMPRESSION: Calcified suprapubic tube ____. I could not really touch him. He is not very cooperative and he has bladder stones, right renal stones on CT scan, which he knows about. He said he did not eat, but he just ate lunch and so he is not in any distress, so we will try to do it electively tomorrow. TID: [id number] RECEIPT: TYE/LESLEY
[2022-01-17 06:38] LABS: Basophils % (Auto) 0.5 % (0.0-1.8); Eosinophils # (Auto) 0.1 K/mm3 (0.0-0.4); Hematocrit 40.8 % (35.5-45.6); Hemoglobin 12.9 gm/dl (11.8-15.2); Lymphocytes # (Auto) 1.3 K/mm3 (1.2-5.4); Lymphocytes % (Auto) 17.4 % (13.4-35.0); Mean Corpuscular HGB Conc 32 % (32-34); Mean Corpuscular Volume 82 fl (84-94); Monocytes # (Auto) 0.8 K/mm3 (0.0-0.8); Monocytes % (Auto) 10.9 % (0.0-7.3); Platelet Count 145 K/mm3 (140-440); Red Blood Count 4.99 M/mm3 (3.65-5.03); Red Cell Distribution Width 16.6 % (13.2-15.2)
[2022-01-17 06:57] LABS: BUN/Creatinine Ratio 20; Blood Urea Nitrogen 18 mg/dL (9-20); Calcium 9.1 mg/dL (8.4-10.2); Hemolysis Index 5
--- NOTE | 2022-01-17 09:33 | Progress Note ---
Assessment and Plan Assessment and plan: 51-year-old male with known history of CVA, seizures, craniotomy and suprapubic catheter brought into the emergency room today with a 1 to 2-day history of malfunctioning catheter. Patient stated he had been having lower abdominal discomfort over the past 2 days. Malfunctioning suprapubic catheter History CVA History of seizure disorder History of craniotomy 01/16/2022. Urology has been consulted and will evaluate the patient this morning. Check CT abdomen pelvis for further evaluation 01/17/2022. CT scan of the abdomen pelvis revealed well-positioned suprapubic bladder catheter. However circumferential bladder wall thickening with internal layering debris and stones along with nonobstructive nephrolithiasis in the right kidney. Urology with plans for the OR today. History Interval history: No new issues overnight Hospitalist Physical - Constitutional Vitals: Temp Pulse Resp BP Pulse Ox 98.0 F 83 20 138/85 97 01/17/22 03:58 01/17/22 03:58 01/17/22 03:58 01/17/22 03:58 01/17/22 03:58 General appearance: Present: no acute distress - EENT Eyes: Present: PERRL, EOM intact ENT: hearing intact, clear oral mucosa, dentition normal - Neck Neck: Present: supple, normal ROM - Respiratory Respiratory effort: normal Respiratory: bilateral: CTA - Cardiovascular Rhythm: regular Heart Sounds: Present: S1 & S2. Absent: gallop, rub - Extremities Extremities: no ischemia, No edema, Full ROM - Abdominal General gastrointestinal: soft, non-tender, non-distended, normal bowel sounds - Integumentary Integumentary: Present: clear, warm, dry - Neurologic Neurologic: CNII-XII intact, moves all extremities Results - Labs CBC & Chem 7: 01/17/22 06:23 01/17/22 06:23 Labs: Laboratory Last Values WBC 7.3 K/mm3 (4.5-11.0) 01/17/22 06:23 RBC 4.99 M/mm3 (3.65-5.03) 01/17/22 06:23 Hgb 12.9 gm/dl (11.8-15.2) 01/17/22 06:23 Hct 40.8 % (35.5-45.6) 01/17/22 06:23 MCV 82 fl (84-94) L 01/17/22 06:23 MCH 26 pg (28-32) L 01/17/22 06:23 MCHC 32 % (32-34) 01/17/22 06:23 RDW 16.6 % (13.2-15.2) H 01/17/22 06:23 Plt Count 145 K/mm3 (140-440) 01/17/22 06:23 Lymph % (Auto) 17.4 % (13.4-35.0) 01/17/22 06:23 Burke % (Auto) 10.9 % (0.0-7.3) H 01/17/22 06:23 Eos % (Auto) 1.0 % (0.0-4.3) 01/17/22 06:23 Baso % (Auto) 0.5 % (0.0-1.8) 01/17/22 06:23 Lymph # (Auto) 1.3 K/mm3 (1.2-5.4) 01/17/22 06:23 Burke # (Auto) 0.8 K/mm3 (0.0-0.8) 01/17/22 06:23 Eos # (Auto) 0.1 K/mm3 (0.0-0.4) 01/17/22 06:23 Baso # (Auto) 0.0 K/mm3 (0.0-0.1) 01/17/22 06:23 Seg Neutrophils % 70.2 % (40.0-70.0) H 01/17/22 06:23 Seg Neutrophils # 5.1 K/mm3 (1.8-7.7) 01/17/22 06:23 Sodium 142 mmol/L (137-145) 01/17/22 06:23 Potassium 3.8 mmol/L (3.6-5.0) 01/17/22 06:23 Chloride 107.3 mmol/L (98-107) H 01/17/22 06:23 Carbon Dioxide 24 mmol/L (22-30) 01/17/22 06:23 Anion Gap 15 mmol/L 01/17/22 06:23 BUN 18 mg/dL (9-20) 01/17/22 06:23 Creatinine 0.9 mg/dL (0.8-1.3) 01/17/22 06:23 Estimated GFR > 60 ml/min 01/17/22 06:23 BUN/Creatinine Ratio 20 % 01/17/22 06:23 Glucose 88 mg/dL (75-100) 01/17/22 06:23 Calcium 9.1 mg/dL (8.4-10.2) 01/17/22 06:23 Nasal Screen MRSA (PCR) Negative (Negative) 01/16/22 05:20 Juarez/IV: Voiding Method Condom Catheter Active Medications - Current Medications Current Medications: Generic Name Dose Route Start Last Admin Trade Name Freq PRN Reason Stop Dose Admin Acetaminophen 650 mg 01/16/22 00:33 01/16/22 20:39 Acetaminophen 325 Mg Tab PO 650 mg Q4H PRN Administration Pain MILD(1-3)/Fever >100.5/JOHN Magnesium Hydroxide 30 ml 01/16/22 00:33 Magnesium Hydroxide (Mom) Oral Liqd Udc PO Q4H PRN Constipation Morphine Sulfate 2 mg 01/16/22 00:33 Morphine 2 Mg/1 Ml Inj IV Q4H PRN Pain, Moderate (4-6) Morphine Sulfate 4 mg 01/16/22 00:33 Morphine 4 Mg/1 Ml Inj IV Q4H PRN Pain , Severe (7-10) Ondansetron HCl 4 mg 01/16/22 00:33 Ondansetron 4 Mg/2 Ml Inj IV Q8H PRN Nausea And Vomiting Sodium Chloride 10 ml 01/16/22 10:00 01/17/22 08:07 Sodium Chloride 0.9% 10 Ml Flush Syringe IV Not Given BID TORSTEN Sodium Chloride 10 ml 01/16/22 00:33 Sodium Chloride 0.9% 10 Ml Flush Syringe IV PRN PRN LINE FLUSH Nutrition/Malnutrition Assess - Dietary Evaluation Nutrition/Malnutrition Findings: Nutrition Notes Start: 01/16/22 14:48 Freq: Status: Active Protocol: Document 01/16/22 14:48 [place] (Rec: 01/16/22 15:12 B[place]ON [id number]) Nutrition Notes Need for Assessment generated from: MD Order Initial or Follow up Assessment Current Diagnosis Stroke Other Pertinent Diagnosis Suprapubic Catheter dysfunction, Urinary Retention , Seizures, Craniotomy. Current Diet Cardiac Diet +D Supplements ( since B 01/16). Labs/Tests 01/16: Cl 107.1, Glu 105. Pertinent Medications 01/16: Nutritionally unremarkable. Height 6 ft Weight 83.461 kg [place] Body Weight (kg) 80.90 BMI 24.9 Intake Prior to Admission Good Weight change and time frame Pt denies having loss body weight [employer] ANESTHESIOLOGY. Weight Status Appropriate Subjective/Other Information RD consult for Dietary Supplementation assessment. No reports availkable on Pt's PO intake of meals at the time . Pt lives on SNF. Percent of energy/protein needs met: Prescribed Cardiac Diet provides for energy/protein needs (2,230 Kcal/85 g) during LOS; additionally, Dietary Supplements will compensate for possible poor or insufficient PO intake of meals with 700 Kcal and 40 g of protein. Burn Absent Trauma Absent GI Symptoms None Food Allergy No Skin Integrity/Comment Assessment WNL. Minimum of two criteria No #1 Nutrition Diagnosis No nutrition diagnosis at this time Comments: Will reassess PO intake at F/U . Is patient on ventilator? No Is Patient Ambulatory and/or Out of Bed Yes REE-([facility]-ambulatory/OOB) [ 2232.893 NUTR.[id number]] Kcal/Kg value to use for calculation 23 Approximate Energy Requirements Using 1920 kcal/Kg Calculation Used for Recommendations Kcal/kg Additional Notes Protein: 0.8-1 g/Kg ABW; 66-83 g/day. Fluids: 1 ml/Kcal, or as per MD. Nutrition Intervention Follow-Up By: 01/23/22 Additional Comments Continue monitoring food tolerance, %PO intake of meals , and BM.
--- NOTE | 2022-01-17 10:18 | Anesthesia Consultation ---
Anesthesia Consult and Med Hx Date of service: 01/17/22 - Airway Anesthetic Teeth Evaluation: Good (some missing teeth) ROM Head & Neck: Adequate Mental/Hyoid Distance: Adequate Mallampati Class: Class III Intubation Access Assessment: Possibly Difficult (small mouth opening during the exam) - Pre-Operative Health Status ASA Pre-Surgery Classification: ASA3 Proposed Anesthetic Plan: General - Pulmonary Hx Asthma: No COPD: No Hx Pneumonia: No - Cardiovascular System Hx Hypertension: Yes - Central Nervous System Hx Seizures: Yes (s/p craniotomy ) CVA: Yes (2018, left hemiplegea, ) Hx Back Pain: No (Wheelchair bound) - Endocrine Hx Renal Disease: Yes (urinary retention, suprapubic catheter in place ) Hx End Stage Renal Disease: No
--- NOTE | 2022-01-17 10:19 | Anesthesia Day of Surgery ---
Anesthesia Day of Surgery - Day of Surgery Patient Examined: Yes Patient H&P Reviewed: Yes Patient is NPO: Yes
[2022-01-17] MEDS ORDERED: NEOMY 40 MG/POLYMYXIN B 200,000 UNITS/ML (GU) AMPULE IR ONE (10:21)
[2022-01-17] MEDS ORDERED: NEOMY 3.5 MG/BACIT 400 UNITS/POLY B 5000 UNITS OINT 15 GM TP ONE (10:21)
[2022-01-17] MEDS ORDERED: HYDROmorphone 1 MG/1 ML INJ ONE (10:36)
[2022-01-17] MEDS ORDERED: propofoL 200 MG/20 ML VIAL IV ONE (10:36)
[2022-01-17] MEDS ORDERED: LIDOCAINE MPF (2%) 20 MG/1 ML VIAL 5 ML ONE (10:36)
[2022-01-17] MEDS ORDERED: ceFAZolin 1 GM VIAL ONE ×2 (11:54)
[2022-01-17] MEDS ORDERED: SODIUM CHLORIDE 0.9% IRRIG SOLN 2000 ML IR ONE (12:01)
[2022-01-17] MEDS ORDERED: SODIUM CHLORIDE 0.9% IRR 1,500 ML BOTTLE IR ONE (12:01)
[2022-01-17] MEDS ORDERED: IOHEXOL 300 MG/ML 50ML IV ONE (12:02)
[2022-01-17] MEDS ORDERED: ONDANSETRON 4 MG/2 ML INJ ONE (12:18)
--- NOTE | 2022-01-17 12:54 | Post Operative Note ---
Date of procedure: 01/17/22 Pre-op diagnosis: urinary retention Post-op diagnosis: same Findings: closed urethra Procedure: removal [facility] Anesthesia: GETA Surgeon: RACHELL BALL Estimated blood loss: none Pathology: none Condition: stable Disposition: PACU
[2022-01-17] MEDS ORDERED: SODIUM CHLORIDE 0.9% 1000 ML 1,000 ML ONE ×2 (13:02→13:24)
--- NOTE | 2022-01-17 13:44 | Post Anesthesia Evaluation ---
- Post Anesthesia Evaluation Patient Participated: Yes Airway Patent: Yes Stable Respiratory Function: Yes Nausea/Vomiting: No Temp > 96.8F: Yes Pain Manageable: Yes Adequeate Hydration: Yes Anesthesia Complications: No
--- NOTE | 2022-01-17 15:32 | Fluoroscopy Report ---
INTRAOPERATIVE FLUOROSCOPY: CYSTOGRAM INDICATION / CLINICAL INFORMATION: URINARY RETENTION. TECHNIQUE: Intraoperative spot images were obtained during the procedure. FINDINGS: Patient status post suprapubic catheter exchange. Fluoroscopy Time: For second. Fluoroscopy Images: 3. Signer Name: Nagi Arvizu DO Signed: 01/17/2022 3:28 PM Workstation Name: [email or web address]
--- NOTE | 2022-01-17 19:15 | Operative Report ---
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 POSTOPERATIVE DIAGNOSES: Severe stricture disease with a nonfunctioning encrusted suprapubic tube, 12-Syriac. PROCEDURES: Removal of suprapubic tube, dilation of the tract, reinsertion of a large 20-Syriac suprapubic tube, attempted cystoscopy. SURGEON: Shmuel Avendaño MD ANESTHESIA: General. FINDINGS: This gentleman has severe scarring and perineal, previous looks like urethrostomy. He has a tube that does not drain, with severe pain. He now presents for exchange. DESCRIPTION OF PROCEDURE: The patient was brought to operating room and placed on the operating table. Following induction of anesthesia, placed in lithotomy position, prepped and draped in usual sterile fashion. Finally, the tube was removed. A wire coiled in the bladder. The tract was dilated to 24-Syriac and a 20-Syriac suprapubic tube was placed. We could see the perineal scarring and the urethral scarring, but we could not get anything through the meatus. The patient tolerated the procedure well. He was brought to recovery room. The irrigation was clear. He was in stable condition. TID: [id number] RECEIPT: [id number] TINO
--- NOTE | 2022-01-18 08:31 | Discharge Summary ---
Providers - Providers Date of Admission: 01/16/22 00:34 Date of discharge: 01/18/22 Attending physician: DONNY PORTILLO 01/15/22 23:45 Consult to Physician [CONS] Routine Comment: Dr. James spoke with Dr. Ball @ [phone] Consulting Provider: RACHELL BALL Physician Instructions: Reason For Exam: unable to remove/change suprapubic paige Primary care physician: HECTOR FUNK Hospitalization Reason for admission: Malfunctioning suprapubic catheter Condition: Stable Hospital course: 51-year-old male with known history of CVA, seizures, craniotomy and suprapubic catheter brought into the emergency room today with a 1 to 2-day history of malfunctioning catheter. Patient stated he had been having lower abdominal discomfort over the past 2 days. The patient was admitted with diagnosis of Malfunctioning suprapubic catheter History CVA History of seizure disorder History of craniotomy Hospital course: 01/16/2022. Urology has been consulted and will evaluate the patient this morning. Check CT abdomen pelvis for further evaluation 01/17/2022. CT scan of the abdomen pelvis revealed well-positioned suprapubic bladder catheter. However circumferential bladder wall thickening with internal layering debris and stones along with nonobstructive nephrolithiasis in the right kidney. Urology with plans for the OR today. 01/18/2022. The patient was seen by urology and underwent removal and replacement of suprapubic catheter. Patient tolerated procedure well The patient is felt to have received maximal hospital benefit and will be discharged back to [place]. Disposition: 30 STILL A PATIENT Final Discharge Diagnosis (Prints w/discharge instructions): Malfunctioning suprapubic catheter s/p change. History CVA. History of seizure disorder. History of craniotomy Core Measure Documentation - Palliative Care Palliative Care/ Comfort Measures: Not Applicable - Core Measures Any of the following diagnoses?: none Exam - Constitutional Vitals: Temp Pulse Resp BP Pulse Ox 97.9 F 83 20 167/89 97 01/18/22 05:50 01/18/22 05:50 01/18/22 05:50 01/18/22 05:50 01/18/22 05:50 General appearance: Present: no acute distress, well-nourished - EENT Eyes: Present: PERRL ENT: hearing intact, clear oral mucosa - Neck Neck: Present: supple, normal ROM - Respiratory Respiratory effort: normal Respiratory: bilateral: CTA - Cardiovascular Heart Sounds: Present: S1 & S2. Absent: rub, click - Extremities Extremities: pulses symmetrical, No edema Peripheral Pulses: within normal limits - Abdominal General gastrointestinal: Present: soft, non-tender, non-distended, normal bowel sounds Male genitourinary: Present: normal - Integumentary Integumentary: Present: clear, warm, dry - Musculoskeletal Musculoskeletal: gait normal, strength equal bilaterally - Psychiatric Psychiatric: appropriate mood/affect, intact judgment & insight - Neurologic Neurologic: CNII-XII intact, moves all extremities Plan Activity: advance as tolerated Weight Bearing Status: Weight Bear as Tolerated Diet: regular Follow up with: HECTOR FUNK MD [Primary Care Provider] - 3-5 Days
[2022-01-18 11:34] VITALS: BP 157/83
== END 2022-01-18 12:12 | DRG 663 ==
LOC: ED 19:45 → 3A 01-16 00:34
PROVIDERS: ADMIT Internal Medicine Geriatric Medicine; ATTEND Hospitalist
PROC: 0TP Urinary System, Removal (ICD-10-PCS; principal; 2022-01-17)
PROC: 0T9B30Z Drainage of Bladder with Drainage Device, Percutaneous Approach (ICD-10-PCS; 2022-01-17)
DX: T83.018A Breakdown (mechanical) of other urinary catheter, initial encounter (principal); G40.802 Other epilepsy, not intractable, without status epilepticus; I69.354 Hemiplegia and hemiparesis following cerebral infarction affecting left non-dominant side; R33.9 Retention of urine, unspecified; Y92.89 Other specified places as the place of occurrence of the external cause
CPT/HCPCS: 36415; 74176; 74430; 80048; 85025; 87641; G0378; J3490; J7120; Q0162; C1725; C1769; J0690; J1170; J2405; J2704; J7030; Q9967; U0003